=== PATIENT | male | born 1995 | race Hispanic/Latino ===

== ENCOUNTER 2019-10-03 23:06 | Emergency (ER) | payer OTHER ==
[2019-10-04] MEDS ORDERED: DiphenhydrAMINE HCL 50 MG/ML VIAL ONE (00:11)
== END 2019-10-04 01:59 | disposition home or self-care (01) ==
LOC: EDH 23:06
DX: S10.83XA Contusion of other specified part of neck, initial encounter (principal); S00.81XA Abrasion of other part of head, initial encounter; F19.129 Other psychoactive substance abuse with intoxication, unspecified; V49.49XA Driver injured in collision with other motor vehicles in traffic accident, initial encounter; Y93.89 Activity, other specified; Y92.89 Other specified places as the place of occurrence of the external cause; Y99.8 Other external cause status
CPT/HCPCS: 70450; 71045; 72125; 96372; 99284; J1200